=== PATIENT | male | born 1970 | race Caucasian/White ===

== ENCOUNTER 2021-04-26 17:08 | Emergency (ER) | payer OTHER, SELFPAY ==
[2021-04-26 17:08] VITALS: BP 128/82; PULSE 64; RESP 15; TEMP 36.2; O2SAT 96; BMI 31.7
--- NOTE | 2021-04-26 17:29 | ED.VIS.LOWEX ---
HPI History of Present Illness Chief Complaint: Lower Extremity Injury Detail of Chief Complaint: Redness and swelling to left calf Informant: patient Narrative Narrative: Patient presents to the emergency department complaint of redness and swelling to the left calf. Patient initially started with some mild discomfort about 4 days ago. Patient developed some redness and increased discomfort over the last 24 hours. Patient was seen at urgent care and they were concerned about DVT so they were referred to the emergency department. Patient [place] any chest pain or shortness of breath. He has no history of PE or DVT. He denies any trauma to the leg. Patient does have history of varicose veins to the leg. PFSH PFSH Home Medications cephalexin 500 mg PO Q8H 10 Days #30 cap 04/26/21 [Rx Last Taken Unknown] Allergy/AdvReac Type Severity Reaction Status Date / Time No Known Allergies Allergy Verified 04/26/21 17:09 Surgical History (Updated 04/26/21 @ 17:23 by Anais Kraft) Hx of hernia repair Social History Smoking Status: Never smoker ROS ROS ED Constitutional Constitutional ED: Reports systems reviewed and no addt'l complaints, except as documented; Denies body ache(s), change in weight or chills Eyes Eyes: Denies acute decrease in peripheral vision, change in vision, double vision or loss of vision ENT ENT ED: Reports none; Denies ear pain, lip swelling, loss taste/smell, neck pain, otalgia or sore throat Cardiovascular Cardiovascular: Reports none; Denies abdominal pain, chest pain with activity, leg edema, lightheadedness, palpitations, rapid heart rate or syncope Respiratory/Chest Respiratory/Chest: Reports none; Denies change in mental status, dry cough, dyspnea, hemoptysis, shortness of breath at rest or shortness of breath with exertion Gastrointestinal Gastrointestinal: Reports none; Denies abdominal pain, change in stool character, diarrhea, hematemesis, hematochezia, melena, rectal bleeding or vomiting Genitourinary Genitourinary ED: Reports none; Denies abdominal discomfort, anuria, dysuria, genital pain or polyuria Musculoskeletal Musculoskeletal: Reports none and other Details: Left calf pain, redness, and swelling ; Denies arthralgias, back pain, difficulty walking, extremity pain, muscle weakness or myalgias Integumentary Reports none; Denies abscess or rash Neurologic Neurologic: Reports none; Denies abnormal gait, confusion, focal weakness, frequent falls, headache(s), loss of vision, numbness, paresthesias, radicular pain, vertigo or weakness Psychiatric Psychiatric: Reports systems reviewed and no addt'l complaints, except as documented and none; Denies behavioral changes, confusion, difficulty concentrating, hallucinations, suicidal ideation, tactile hallucinations or visual hallucinations Endocrine Endocrinology: Denies none, cold intolerance, excessive sweating, fatigue or heat intolerance Hematologic/Lymphatic Hematologic/Lymphatic: Reports none; Denies anemia, easy bleeding or easy bruising Allergic/Immunologic Allergic/Immunologic ED: Denies as per HPI, none, lip swelling, mouth swelling, throat swelling, tongue swelling or hives EXAM Physical Exam Const Vital Signs: 04/26/21 17:08 Temperature 97.2 F L Temperature Source Temporal Pulse Rate 64 Respiratory Rate 15 Blood Pressure 128/82 H Blood Pressure Mean 97 Pulse Ox 96 Oxygen Delivery Method Room Air Positive well nourished and well developed General Appearance ED: well developed and NAD HEENT Reports TM's clear and moist mucous membranes normocephalic and atraumatic; Negative for trauma or tenderness Tympanic Membrane ED: Yes TM's clear Eyes PERRL and EOMs intact bilaterally General Eye ED: Negative for pale conjunctiva or scleral icterus Neck no lymphadenopathy, supple and no JVD General: Negative for tenderness Chest Wall inspection of chest normal and palpation of chest normal Chest: Negative for tenderness Resp normal respiratory effort and clear to auscultation bilaterally Effort and Inspection: Negative for respiratory distress or pain with movement Auscultation: Negative for rhonchi, wheezes or diminished lung sounds Cardio regular rate, regular rhythm, S1 normal heart sound, S2 normal heart sound and no murmurs Peripheral Pulses: pulses 2+ throughout GI normal to inspection, nondistended, normoactive bowel sounds, soft to palpation, non-tender, non-distended and no masses Back/Spine no CVA tenderness and no thoracic nor lumbar tenderness Extremity normal to inspection Extremity Narrative: Evaluation of the left leg does reveal multiple varicosities to the lower leg. Over the area of the posterior calf there is a large varicosity that is tender to palpation and somewhat firm. There is surrounding cellulitic changes noted to the skin of the posterior calf. He is neurovascularly intact distally. General Extremety ED: Negative for edema General Extremity: Negative for edema Neuro oriented x3, CN's II-XII intact bilaterally, no sensory deficits noted and gait normal Sensorium / Orientation: awake, alert, oriented to person, oriented to place and oriented to time Motor Exam: strength 5/5 throughout and strength abnormal Psych mental status grossly normal Skin no rashes or lesions noted and no wounds MDM MDM MDM Narrative Medical decision making narrative: In the differential is cellulitis versus superficial thrombophlebitis versus DVT. Patient understands we cannot obtain a venous Doppler this evening however he will receive a dose of Eliquis and will return tomorrow morning to have a venous Doppler of the lower extremity to rule out DVT. Patient also will be started on Keflex. Discharge Plan Triage Chief Complaint: Lower Extremity Injury ED Provider: Neil Valle Dx/Rx/DC Orders Clinical Impression: Cellulitis, Thrombophlebitis Instructions: ED Cellulitis, ED Deep Vein Thrombosis (DVT), ED Thrombophlebitis, Superficial Prescriptions: New cephalexin 500 mg capsule 500 mg PO Q8H 10 Days Qty: 30 RF: 0 Primary Care Provider: Chas Zavala Referrals: Chas Zavala MD [Primary Care Provider] - 3-5 Days Activity Restrictions/Additional Instructions: Return tomorrow morning to have venous Doppler of your left leg to rule out deep vein thrombosis Disposition Disposition: Home, Self Care
[2021-04-26] MEDS: APIXABAN 5 MG TABLET 10 MG PO (17:53)
[2021-04-26] MEDS: Cephalexin 250 MG Capsule 500 MG PO (17:53)
== END 2021-04-26 18:00 | disposition home or self-care (01) ==
LOC: ED 17:39
PROVIDERS: Emergency Provider Emergency Medicine; PCP Family Medicine
DX: L03.116 Cellulitis of left lower limb (principal); I80.3 Phlebitis and thrombophlebitis of lower extremities, unspecified; I83.92 Asymptomatic varicose veins of left lower extremity
CPT/HCPCS: 99283

== ENCOUNTER → 2021-04-27 10:59 | Outpatient (CLI) | payer OTHER, SELFPAY ==
--- NOTE | 2021-04-27 11:01 | VDLE_ITS ---
Reason For Study: Swelling Procedure LEFT This is a venous duplex using B-mode, color GSV is normal. flow and spectral Doppler. CFV is compressible, spontaneous, phasic, Exam performed in department. competent, and demonstrates normal A preliminary report was called and/or faxed augmentation. to [facility]. FV is compressible, spontaneous, phasic, competent and demonstrates normal augmentation. POP V is compressible, spontaneous, phasic, competent and demonstrates normal augmentation. T/P Trunk is compressible. PTV is compressible. LT PerV is compressible. SSV is compressible. Thrombus filled varicose veins are noted in the posterior prox-mid calf. VL/Venous Duplex US, Unilateral Interpretation Summary There is no evidence of left lower extremity deep vein thrombosis. Left great s aphenous vein appears patent and compressible segmentally. Superficial thrombophlebitis varicosities left posterior proximal to mid calf. A preliminary report was called and/or faxed to [facility] Ordering Physician: Neil Valle Referring Physician: Chas Zavala Performed By: Blanca Jones RVT
== END ==
PROVIDERS: PCP Family Medicine; Referring Provider Emergency Medicine; Visit Provider Emergency Medicine
DX: M79.89 Other specified soft tissue disorders (principal)
CPT/HCPCS: 93971

== ENCOUNTER 2022-07-20 20:13 | Emergency (ER) | payer OTHER, SELFPAY ==
[2022-07-20 20:13] VITALS: BP 196/173; PULSE 111; RESP 15; TEMP 38.4; O2SAT 97; BMI 33.0
[2022-07-20 20:29] VITALS: BP 196/173; PULSE 111; RESP 15; TEMP 38.4; O2SAT 97
--- NOTE | 2022-07-20 20:34 | EX.ED.DYSGE1 ---
HPI History of Present Illness Chief Complaint: General Illness Narrative Narrative: 51-year-old male presents from urgent care with fever and metal splinter in his right index finger. He is right-hand dominant. He states that he was working with metal at home 2 to 3 days ago. He had a splinter in his right index finger that was metal that he thought he had removed. He was exposed to strep throat but denies any sore throat. He states he developed a fever yesterday. He went to urgent care and tested positive for strep throat and was given a prescription for Augmentin. However, they state that he was sent here for evaluation of possible splinter in his finger that is infected that is also causing the fever. He denies any redness to the area but has slight pain which she thinks may have been from digging at a splinter and recent removal. No other symptoms. No drainage of pus from his wound. PFSH PFSH Home Medications cephalexin 500 mg capsule 500 mg PO Q8H 10 days #30 caps 04/26/21 [Rx Last Taken Unknown] aspirin 325 mg tablet 325 mg PO DAILY 07/20/22 [History Last Taken Unknown] Allergy/AdvReac Type Severity Reaction Status Date / Time No Known Allergies Allergy Verified 07/20/22 20:18 Surgical History Hx of hernia repair Social History Smoking Status: Never smoker ROS ROS ED ROS Narrative Constitutional: Positive fever, no chills. HEENT: No sore throat. No neck pain. No loss of vision. No rhinorrhea. Cardiovascular: No chest pain. No palpitations. No pedal edema. Respiratory: No cough, no shortness of breath. Abdominal: No abdominal pain. No nausea. No vomiting. Genitourinary: No dysuria. No hematuria. Musculoskeletal: No myalgias. Right index finger tip pain worse with palpation and area where splinter was reportedly removed. Neurologic: No headaches. No dizziness. No lightheadedness. Skin: No rash. No change in color. Psychiatric: No depression. No anxiety. EXAM Physical Exam Narrative Exam Narrative: Temperature 101.2 vital signs noted. HEENT: Normocephalic. Atraumatic. PERRL, EOMI. Neck soft and supple. No point tenderness or step off. Cardiovascular: Mild tachycardia. No murmurs, rubs, or gallops appreciated. Respiratory: No tachypnea. Lungs clear to auscultation bilaterally. Gastrointestinal: Abdomen soft, nontender, with normoactive bowel sounds. No rebound or guarding. Neurological: Awake. Alert. Nonfocal, nonlateralizing. Skin: No rash. Normal color. No pallor. Positive small wound with tenderness to palpation right fingertip near DIP joint. Good capillary refill. No fluctuance. Musculoskeletal: No pedal edema. Full range of motion extremities. Const Vital Signs: 07/20/22 20:13 07/20/22 20:27 07/20/22 20:29 Temperature 101.2 F H 101.2 F H Temperature Source Temporal Temporal Pulse Rate 111 H 111 H Respiratory Rate 15 15 Respiratory Effort Normal Non-Labored Respiratory Pattern Normal Blood Pressure 196/173 H 196/173 H Blood Pressure Mean 180 180 Pulse Ox 97 97 Oxygen Delivery Method Room Air Room Air 07/20/22 20:38 07/20/22 21:24 Temperature 99.8 F H Temperature Source Temporal Pulse Rate 106 H Respiratory Rate 18 Respiratory Effort Respiratory Pattern Blood Pressure 131/76 H 134/71 H Blood Pressure Mean 94 92 Pulse Ox 94 Oxygen Delivery Method Room Air MDM MDM MDM Narrative Medical decision making narrative: Patient was administered Tylenol for his fever. He has elevated blood pressure recorded but it was retaken and is 134/71. After Tylenol, temperature is 99.8. X-rays were obtained and interpreted by myself. There is no evidence of fracture or metal splinter visualized on my interpretation. At this point in time, I feel he can be discharged safely home with follow-up. I do feel that the Augmentin that he was prescribed would cover any skin infection in his finger wound from his removal of the splinter. Return instructions to the emergency department were reviewed. Disposition is discharged home in stable condition. Radiography Diagnostic Testing: Clinical Impression(s) from Imaging Studies Finger X-Ray 07/20/22 20:38 IMPRESSION: Normal x-ray examination of the finger. There is no visualized splinter within the soft tissues of the second digit Electronically Signed: Luis Rocha DO at 21:13 EST Reading Location ID and State: [address] [place] [address] Tel [phone], Service support , Discharge Plan Triage Chief Complaint: General Illness ED Provider: Yosef Crews Dx/Rx/DC Orders Clinical Impression: Strep throat, Finger pain, right Instructions: ED Pain, Acute, Uncertain Cause, ED Pharyngitis, Strep (Presumed) Prescriptions: No Action cephalexin 500 mg capsule 500 mg PO Q8H 10 Days Qty: 30 0RF aspirin 325 mg Tablet 325 mg PO DAILY Primary Care Provider: Chas Zavala Referrals: Chas Zavala MD [Primary Care Provider] - Activity Restrictions/Additional Instructions: Take Tylenol or ibuprofen as needed for pain and fever. Take the antibiotics that were prescribed to you for your positive strep pharyngitis test. Disposition Disposition: Home, Self Care
[2022-07-20] MEDS: Acetaminophen 325 MG Tablet 650 MG PO (20:37)
[2022-07-20 20:38] VITALS: BP 131/76
--- NOTE | 2022-07-20 20:38 | RAD_ITS ---
STUDY: X-RAY - RIGHT HAND, ATTENTION SECOND FINGER REASON FOR EXAM: Male, 51 years old. Foreign body. Splinter. TECHNIQUE: 3 view(s) of the finger were obtained. COMPARISON: None. FINDINGS: Normal metacarpal head. Normal metacarpophalangeal joint. Normal proximal phalanx. Normal middle phalanx. Normal distal phalanx. Normal proximal interphalangeal joint. Normal distal interphalangeal joint. Normal soft tissues. No opaque foreign body RAD/Finger(s) Min 2 Views IMPRESSION: Normal x-ray examination of the finger. There is no visualized splinter within the soft tissues of the second digit Electronically Signed: Luis Rocha DO at 21:13 EST ,
[2022-07-20 21:24] VITALS: BP 134/71; PULSE 106; RESP 18; TEMP 37.7; O2SAT 94
[2022-07-20 21:48] VITALS: BP 123/37; PULSE 102; RESP 18; O2SAT 95
== END 2022-07-20 22:00 | disposition home or self-care (01) ==
PROVIDERS: Emergency Provider Emergency Medicine; PCP Family Medicine; Visit Provider Emergency Medicine
DX: J02.0 Streptococcal pharyngitis (principal); M79.644 Pain in right finger(s); Z79.82 Long term (current) use of aspirin
CPT/HCPCS: 73140; 99283